=== PATIENT | male | born 2005 | race Caucasian/White ===

== ENCOUNTER 2025-01-30 07:01 | Day surgery (SDC) | payer BC ==
[~2025-01-30] VITALS: Ht 167.6 cm; Wt 103.7 kg
[~2025-01-30 07:01] MED LIST: DESM0.2T22 PO; SILD100T PO
[2025-01-30] MEDS: LR 1,000 ML IV SCH (07:30)
[2025-01-30] MEDS ORDERED: dexAMETHasone 4 MG/ML 1 ML VIAL As Ordered ONE (07:42)
[2025-01-30] MEDS ORDERED: LIDOCAINE 2% 100 MG/5 ML SDV (FOR ANES.) As Ordered ONE (07:42)
[2025-01-30] MEDS ORDERED: ONDANSETRON 4MG/2ML VIAL As Ordered ONE (07:42)
[2025-01-30] MEDS ORDERED: MIDAZOLAM INJ 2 MG/2 ML VIAL As Ordered ONE (07:43)
[2025-01-30] MEDS ORDERED: SEVOFLURANE INHAL SOLN 250 ML BTL As Ordered ONE (07:50)
[2025-01-30] MEDS ORDERED: dexmedeTOMIDine (4 MCG/ML) 200 MCG/50 ML BTL As Ordered ONE (08:02)
[2025-01-30] MEDS: ceFAZolin SOD 2 GM IV ONCE IV ONE (08:40)
[2025-01-30] MEDS ORDERED: ACETAMINOPHEN 1000MG/100ML IV BAG As Ordered ONE (08:50)
[2025-01-30] MEDS ORDERED: KETOROLAC 30 MG/ML 1 ML VIAL As Ordered ONE (08:59)
[2025-01-30] MEDS: LIDOCAINE 1% SDV 30 ML VIAL As Ordered ONE (09:02)
[2025-01-30] MEDS ORDERED: CEPH500C PO (09:09)
[2025-01-30 09:29] VITALS: BP 120/84; TEMP 98.5; O2SAT 96
== END 2025-01-30 09:40 | disposition home or self-care (01) ==
LOC: M SDC 07:01
PROVIDERS: ATTEND Urology
DX: N39.44 Nocturnal enuresis (principal); Q64.32 Congenital stricture of urethra; R33.9 Retention of urine, unspecified; N30.10 Interstitial cystitis (chronic) without hematuria; R68.82 Decreased libido; Z79.899 Other long term (current) drug therapy
CPT/HCPCS: 64561; 76000; C1778; C1897; J0131; J0688; J1885; J2250; J2405; J3010